=== PATIENT | male | born 1950 | race Caucasian/White ===

== ENCOUNTER 2018-03-22 08:09 | Day surgery (SDC) | payer MEDICARE, OTHER ==
[2018-03-19 16:57] LABS: CLARITY,URINE CLEAR (Clear); COLOR,URINE YELLOW (Yellow); GLUCOSE, URINE NEGATIVE (Neg); KETONES,URINE NEGATIVE (Neg); LEUKOCYTE ESTERASE ,URINE NEGATIVE (Neg); NITRITES, URINE NEGATIVE (Neg); OCCULT BLOOD,URINE NEGATIVE (Neg); PROTEIN,URINE NEGATIVE (Neg); UA COLLECTION TYPE CLN CATCH MIDSTREAM; UROBILINOGEN,URINE 0.2 E.U/dL (0.2-1.0)
[2018-03-19 17:06] LABS: PRE OP PROTIME 10.5 SECONDS (9.0-12.0)
[2018-03-19 17:07] LABS: BASOPHILS % (AUTO) 0.7 % (0-1); EOSINOPHILS # (AUTO) 0.3 X10'3 (0-0.9); EOSINOPHILS % (AUTO) 5.5 % (0-6); LYMPHOCYTES # (AUTO) 1.3 X10'3 (1.1-4.8); LYMPHOCYTES % (AUTO) 23.7 % (21-51); MEAN CORPUSCULAR HEMOGLOBIN 31.3 PG (27.0-31.0); MEAN CORPUSCULAR HGB CONC 33.8 % (33.0-36.5); MEAN CORPUSCULAR VOLUME 92.8 FL (78-98); MEAN PLATELET VOLUME 9.2 FL (7.4-10.4); MONOCYTES # (AUTO) 0.6 X10'3 (0-0.9); MONOCYTES % (AUTO) 11.2 % (2-12); NEUTROPHILS # (AUTO) 3.4 X10'3 (1.8-7.7); NEUTROPHILS % (AUTO) 58.9 % (42-75); PRE OP HEMATOCRIT 48.3 % (42.0-52.0); PRE OP HEMOGLOBIN 16.3 g/dL (14.0-17.9); PRE OP PLATELET COUNT 162 X10'3 (140-440); RED BLOOD COUNT 5.21 X10'6 (4.70-6.10); RED CELL DISTRIBUTION WIDTH 12.4 % (11.5-14.5)
[2018-03-19 17:09] LABS: ALBUMIN 3.8 G/DL (3.4-5.0); ALBUMIN/GLOBULIN RATIO 1.5 (1.1-1.5); ALKALINE PHOSPHATASE 75 IU/L (46-116); BLOOD UREA NITROGEN 11 MG/DL (7-18); CALCIUM 8.2 MG/DL (8.5-10.1); CHLORIDE 102 MMOL/L (99-107); PRE OP ALT 27 U/L (30-65); PRE OP ANION GAP 5 (8-16); PRE OP AST 17 U/L (10-37); PRE OP BILIRUB, TOTAL 0.7 MG/DL (0.0-1.0); PRE OP GLUCOSE 110 MG/DL (70-104); PRE OP POTASSIUM 4.2 MMOL/L (3.4-5.1); PRE OP SODIUM 140 MMOL/L (135-145); TOTAL PROTEIN 6.3 G/DL (6.4-8.2); eGFR 75 ML/MIN
[2018-03-22] VITALS (20 sets, daily range): BP systolic 105–165; BP diastolic 32–84
[~2018-03-22] VITALS: Ht 177.8 cm; Wt 77.1 kg
[~2018-03-22 08:09] MED LIST: CELE-193 PO; ESZO3TAB38 PO; FLO0.4C PO; LISI10TA4 PO; METH5TAB2 PO; OXYC-658 PO; PREG100C PO; TIZA4TAB11 PO; albuterol 2.5 MG/3 ML nebule NEB ONE; ceFAZolin 1GM/D5W- ADD-VANTAGE 50 ML IV ONE; famotidine 20mg tablet PO ONE; ringers solution, lacted 1,000 ML IV SCH
[2018-03-22] MEDS ORDERED: BUPIVAcaine/dex-water/PF 7.5 mg/ml 2ml ampul ONE (11:10)
[2018-03-22] MEDS ORDERED: midazolam 2 mg/2 ml injection ONE (11:12)
[2018-03-22] MEDS ORDERED: fentaNYL/PF 50MCG/1 ML 2ML syringe ONE (11:12)
[2018-03-22] MEDS ORDERED: ringers solution, lacted 1,000 ML IV SCH (11:54)
[2018-03-22] MEDS ORDERED: morphine 4 MG/ML inj SYRINge IV PRN (11:55)
[2018-03-22] MEDS ORDERED: ondansetron/PF 4mg/2ml inj IV PRN ×2 (11:55→16:55)
[2018-03-22] MEDS ORDERED: HYDROmorphone inj. 0.5 MG/0.5 ML DISP.SYRIN IV PRN (11:55)
[2018-03-22] MEDS ORDERED: propofol inj 20 ML IV ONE (12:29)
[2018-03-22] MEDS ORDERED: LIDOcaine 1%/PF 5ML 10 MG/ML VIAL ONE (12:29)
[2018-03-22] MEDS ORDERED: HYDROcodone/acetaminophen 10/325mg tab PO PRN ×2 (14:00→16:55)
[2018-03-22] MEDS: oxyCODONE IR 5mg (immed. release) tablet PO PRN ×2 (14:12→22:05)
[2018-03-22] MEDS ORDERED: zolpidem 5mg tablet PO PRN ×2 (16:55→21:00)
[2018-03-22] MEDS ORDERED: proCHLORperazine 10 MG/2 ml inj IV PRN (16:55)
[2018-03-22] MEDS ORDERED: acetaminophen 325mg tablet PO PRN (16:55)
[2018-03-22] MEDS ORDERED: mag hydrox/Alum hydrox/simeth 30ml oral suspension PO PRN (16:55)
[2018-03-22] MEDS ORDERED: oxybutynin 5mg tablet PO PRN (16:55)
[2018-03-22] MEDS: celeCOXIB 100mg capsule PO SCH (19:45)
[2018-03-22] MEDS: docusate sod 100mg capsule PO SCH (19:45)
[2018-03-22] MEDS: pregabalin 25mg capsule PO SCH (19:47)
[2018-03-22] MEDS: tamsulosin 0.4mg capsule PO SCH (19:47)
[2018-03-22] MEDS: methadone 5mg tablet PO SCH (19:47)
[2018-03-22] MEDS: pregabalin 75mg capsule PO SCH (19:47)
[2018-03-22] MEDS: cyclobenzaprine 10mg tablet PO PRN (19:47)
[2018-03-22] MEDS: potassium cl 20mEq in 1/2 NS 1,000 ML IV SCH (22:04)
[2018-03-23] VITALS: BP 116/60
[2018-03-23] MEDS: ceFAZolin 1GM/D5W- ADD-VANTAGE 50 ML IV SCH ×2 (00:19→08:35)
[2018-03-23] MEDS: potassium cl 20mEq in 1/2 NS 1,000 ML IV SCH ×2 (00:54→05:35)
[2018-03-23 05:13] LABS: BASOPHILS % (AUTO) 0.5 % (0-1); EOSINOPHILS # (AUTO) 0.2 X10'3 (0-0.9); EOSINOPHILS % (AUTO) 3.5 % (0-6); HEMATOCRIT 43.8 % (42.0-52.0); HEMOGLOBIN 14.9 g/dl (14.0-17.9); LYMPHOCYTES # (AUTO) 1.5 X10'3 (1.1-4.8); LYMPHOCYTES % (AUTO) 21.2 % (21-51); MEAN CORPUSCULAR HEMOGLOBIN 32.1 PG (27.0-31.0); MEAN CORPUSCULAR VOLUME 94.5 FL (78-98); MEAN PLATELET VOLUME 9.1 FL (7.4-10.4); MONOCYTES # (AUTO) 0.7 X10'3 (0-0.9); MONOCYTES % (AUTO) 9.5 % (2-12); NEUTROPHILS # (AUTO) 4.6 X10'3 (1.8-7.7); NEUTROPHILS % (AUTO) 65.3 % (42-75); PLATELET COUNT 145 X10'3 (140-440); RED BLOOD COUNT 4.63 X10'6 (4.70-6.10); RED CELL DISTRIBUTION WIDTH 12.1 % (11.5-14.5)
[2018-03-23 05:25] LABS: ALBUMIN 2.9 G/DL (3.4-5.0); ANION GAP 5 (8-16); BLOOD UREA NITROGEN 10 MG/DL (7-18); BUN/CREATININE RATIO 10.3 (5.4-32.0); CHLORIDE 108 MMOL/L (99-107); CREATININE 0.97 MG/DL (0.60-1.10); GLUCOSE 83 MG/DL (70-104); POTASSIUM 4.3 MMOL/L (3.5-5.1); SODIUM 143 MMOL/L (135-145); TOTAL CARBON DIOXIDE 29.7 MMOL/L (24-32); eGFR 77 ML/MIN
[2018-03-23 07:11] VITALS: BP 128/78
[2018-03-23] MEDS ORDERED: pantoprazole 40mg Tablet.DR PO SCH (07:30)
[2018-03-23] MEDS ORDERED: pantoprazole 40mg Tablet.DR PO ONE (08:00)
[2018-03-23] MEDS ORDERED: lisinopril 10 MG tablet PO SCH (08:00)
[2018-03-23] MEDS: oxyCODONE IR 5mg (immed. release) tablet PO PRN (08:37)
[2018-03-23] MEDS: tamsulosin 0.4mg capsule PO SCH (08:37)
[2018-03-23] MEDS: pregabalin 25mg capsule PO SCH (08:38)
[2018-03-23] MEDS: docusate sod 100mg capsule PO SCH (08:38)
[2018-03-23] MEDS: pregabalin 75mg capsule PO SCH (08:38)
[2018-03-23] MEDS: methadone 5mg tablet PO SCH (08:39)
[2018-03-23] MEDS: celeCOXIB 100mg capsule PO SCH (08:40)
[2018-03-23] MEDS: cyclobenzaprine 10mg tablet PO PRN (08:42)
[2018-03-23] MEDS ORDERED: DOCU-28 PO (09:59)
[2018-03-23 11:00] VITALS: BP 123/67
[2018-03-24] MEDS ORDERED: pantoprazole 40mg Tablet.DR PO SCH (07:30)
== END 2018-03-23 13:13 | disposition home or self-care (01) ==
LOC: PAS 08:09 → SUR 3N 14:31 → PAS 03-23 13:13
PROVIDERS: ATTEND Urology
DX: N40.1 Benign prostatic hyperplasia with lower urinary tract symptoms (principal); F41.9 Anxiety disorder, unspecified; J44.9 Chronic obstructive pulmonary disease, unspecified; J45.909 Unspecified asthma, uncomplicated; I10 Essential (primary) hypertension; F32.9 Major depressive disorder, single episode, unspecified; M19.90 Unspecified osteoarthritis, unspecified site; G47.30 Sleep apnea, unspecified; Z98.890 Other specified postprocedural states; Z88.8 Allergy status to other drugs, medicaments and biological substances
CPT/HCPCS: 36415; 52601; 80048; 80053; 81003; 85025; 85610; 85730; 86885; 86900; 86901; 87070; 93005; A4346; A4615; J0690; J1170; J2001; J2250; J2704; J3010; J3490; J7030; 88305; A4402; J7120